=== PATIENT | female | born 1980 | race African-American/Black ===

== ENCOUNTER 2017-05-17 23:05 | Emergency (ER) | payer MEDICARE, MEDICAID ==
[~2017-05-17] VITALS: Ht 170.2 cm; Wt 56.7 kg
[2017-05-17] MEDS ORDERED: NKM (23:10)
[2017-05-17 23:25] VITALS: BP 107/73
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
[2017-05-17] MEDS ORDERED: Ketorolac 60mg Inj IM ONE (23:45)
[2017-05-18 00:44] VITALS: BP 113/66
[2017-05-18] MEDS ORDERED: IBUPROFEN600 MG ORAL (01:21)
[2017-05-18 01:45] VITALS: BP 117/61
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
== END 2017-05-18 01:45 | disposition home or self-care (01) ==
LOC: EDBD 23:05 → EMR 23:25
DX: M54.2 Cervicalgia (principal); R51 Headache
CPT/HCPCS: 72040; 99283